=== PATIENT | female | born 1935 | race Caucasian/White ===

== ENCOUNTER 2016-05-03 13:01 | Outpatient (CLI) | payer MEDICARE ==
[2016-05-03 13:09] LABS: BASOPHILS % 0.3 (0.0-1.5); EOSINOPHILS % 1.5 % (0.0-6.8); LYMPHOCYTES # 1.2 # k/uL (0.6-4.0); MEAN CORPUSCULAR HEMOGLOBIN 27.3 pg (28.0-34.0); MONOCYTES # 0.4 # k/uL (0.0-0.9); MONOCYTES % 4.8 % (0.0-11.0); NEUTROPHILS # 5.6 # k/uL (1.4-7.7)
[2016-05-03 13:23] LABS: eGFR (African) > 60; eGFR (Non-African) > 60
== END 2016-05-03 13:02 ==
LOC: LABRHC 13:01
PROVIDERS: ATTEND Family Medicine
DX: J84.10 Pulmonary fibrosis, unspecified (principal); R53.82 Chronic fatigue, unspecified; E55.9 Vitamin D deficiency, unspecified; E03.9 Hypothyroidism, unspecified
CPT/HCPCS: 36415; 80053; 82306; 84443; 85025

== ENCOUNTER 2017-06-19 16:20 | Outpatient (CLI) | payer MEDICARE ==
[2017-06-20 08:20] LABS: BASOPHILS % 0.7 (0.0-1.5); EOSINOPHILS % 2.5 % (0.0-6.8); MEAN CORPUSCULAR VOLUME 84.9 fl (80.0-100.0); MONOCYTES % 5.3 % (0.0-11.0); NEUTROPHILS # 8.8 # k/uL (1.4-7.7)
[2017-06-20 09:13] LABS: eGFR (African) > 60; eGFR (Non-African) > 60
== END 2017-06-19 16:30 ==
LOC: LABRHC 16:20
PROVIDERS: ATTEND Family Medicine
DX: E03.9 Hypothyroidism, unspecified (principal); R73.9 Hyperglycemia, unspecified; R53.1 Weakness
CPT/HCPCS: 80053; 83036; 84443; 85025

== ENCOUNTER 2018-08-07 13:55 | Outpatient (CLI) | payer MEDICARE ==
[2018-06-11 09:38] VITALS: BP 127/62
== END 2018-08-07 13:57 ==
LOC: LABRHC 13:55
PROVIDERS: ATTEND Family Medicine
DX: L02.213 Cutaneous abscess of chest wall (principal)
CPT/HCPCS: 87070

== ENCOUNTER 2018-11-04 13:44 | Outpatient (CLI) | payer MEDICARE ==
[2018-06-11 09:38] VITALS: BP 127/62
[2018-11-04 14:07] LABS: BASOPHILS % 0.3 % (0.0-1.5)
[2018-11-04 14:28] LABS: eGFR (Non-African) > 60
--- NOTE | 2018-11-04 15:09 | Diagnostic Imaging Report ---
RALPH COLEMAN [facility] [address] [facility] [address] [address] Report Submission Date: Nov 04, 2018 2:57:34 PM CDT Patient Study Name: BIANCA MCKEON Date: Nov 04, 2018 2:20:29 PM CDT Modality Type: DX Gender: F Description: CHEST 2VIEW : 37 Institution: [facility] Physician: RALPH COLEMAN Examination: PA and lateral chest. History: Evaluate lung vásquez. DYSPNEA ON EXERTION Comparison exam: 14 Aug 2018 Findings: PA and lateral views of the chest demonstrates a normal cardiac and mediastinal silhouette. Tortuous aorta. Chronic interstitial changes. No focal infiltrate. No blunting of the costophrenic margins. Osseous structures are appropriate for age. Impression: Chronic interstitial changes/scaring. No acute pulmonary process. Electronically signed on Nov 04, 2018 2:57:34 PM CDT by: Henrik YUN
== END 2018-11-04 13:46 ==
LOC: LAB 13:44
PROVIDERS: ATTEND Family Medicine
DX: R06.09 Other forms of dyspnea (principal)
CPT/HCPCS: 36415; 71046; 80053; 83880; 85025